=== PATIENT | male | born 1960 | race Caucasian/White ===

== ENCOUNTER 2021-07-03 11:36 | Emergency (ER) | payer MEDICARE, OTHER ==
[~2021-07-03] VITALS: Ht 182.9 cm; Wt 104.3 kg
[2021-07-03] MEDS ORDERED: NOVOLIN N100 UNIT/1 SUB-Q (12:11)
[2021-07-03] MEDS ORDERED: REGLAN10 MG PO (14:40)
--- NOTE | 2021-07-06 18:41 | EKG ---
[facility] [address] [facility] [place], [place] [address] Signed Normal sinus rhythm Moderate voltage criteria for LVH, may be normal variant Borderline ECG No previous ECGs available Confirmed by LEONCIO LINARES DO ([id number]) on 07/06/2021 6:41:34 PM Electronically Signed By: LEONCIO LINARES DO 07/06/21 184 PATIENT NAME: EUGENIO MCGILL Electrocardiogram DATE OF : 56 PHYSICIAN: LEONCIO LINARES DO REPORT #: [id number] REPORT IS CONFIDENTIAL AND NOT TO BE RELEASED WITHOUT AUTHORIZATION
== END 2021-07-03 14:47 | disposition home or self-care (01) ==
LOC: ED 11:36
DX: E11.43 Type 2 diabetes mellitus with diabetic autonomic (poly)neuropathy (principal); K31.84 Gastroparesis; E11.22 Type 2 diabetes mellitus with diabetic chronic kidney disease; N18.9 Chronic kidney disease, unspecified; Z79.4 Long term (current) use of insulin; I25.10 Atherosclerotic heart disease of native coronary artery without angina pectoris
CPT/HCPCS: 80053; 81001; 84484; 85025; 93005; 93010; 96374; 96375; 99284-25; J2405; J2765; J7030